=== PATIENT | female | born 1965 | race Caucasian/White ===

== ENCOUNTER 2019-05-03 08:43 | Emergency (ER) | payer OTHER, SELFPAY ==
[2019-05-03] VITALS (8 sets, daily range): BP systolic 115–147; BP diastolic 76–85; PULSE 60–81; RESP 18–20; TEMP 36.6; O2SAT 99
--- NOTE | ~2019-05-03 | XR_ITS ---
EXAMINATION: XR chest 2V EXAM DATE: 05/03/2019 09:24 INDICATION: Left anterior chest pain, shortness of breath and dizziness. Diaphoresis. TECHNIQUE: Frontal and lateral projections of the chest obtained and reviewed. Comparison is made to prior examination from 03/15/2018. FINDINGS: The lungs are clear. There are no pleural effusions. The cardiomediastinal silhouette is within normal limits. There is no pneumothorax suspected. The bones and soft tissues are unremarkab le. IMPRESSION: Normal chest x-ray exam. Reviewed, dictated and finalized at location A. IVAL STUDIES PROFESSOR IMPRESSION: Normal chest x-ray exam.
--- NOTE | 2019-05-03 08:49 | ECG_ITS ---
Measurements Intervals [place] Rate: 65 P: 58 MO: 141 QRS: 73 QRSD: 87 T: 74 QT: 405 QTc: 424 Interpretive Statements SINUS RHYTHM INCOMPLETE RIGHT BUNDLE BRANCH BLOCK DELAYED PRECORDIAL R/S TRANSITION BORDERLINE ECG Electronically Signed On 05-03-2019 12:07:44 CONTROLLED ATMOSPHERIC FURNACE BRAZER by Rick Ruff D.O.
--- NOTE | 2019-05-03 09:12 | ED.CHESTPAIN ---
HPI - Chest Pain General Chief Complaint: Chest Pain Stated Complaint: chest pain Source: patient Mode of arrival: ambulatory Limitations: no limitations History of Present Illness HPI narrative: This is a 53-year-old female presents with chest discomfort left lower chest area and epigastric with episode of diaphoresis that occurred last night, also woke up this morning with continued chest discomfort with no diaphoresis currently no shortness of breath no nausea vomiting she rates her pain a 5/10 currently on verapamil for migraines and gemfibrozil for hyperlipidemia. Currently a smoker of vapor cigarettes, also has a positive family history in her mother with heart disease and 1 stent. complaint: chest discomfort Onset (ago): day(s) Timing of current episode: episodic Prior episodes: Yes Onset: during rest Pain location: left chest and epigastric Pain radiation: none Severity: moderate Pain scale (0-10): 5 Quality: aching Relieving factors: nothing Exacerbating factors: nothing Associated symptoms: diaphoresis Risk Factors Coronary artery disease risk factors: smoking history and hyperlipidemia Related Data Allergies Allergy/AdvReac Type Severity Reaction Status Date / Time adhesive tape Allergy Unknown RASH, SKIN Verified 04/08/19 14:03 TEAR codeine Allergy Unknown N&V Verified 04/08/19 14:03 Latex, Natural Rubber Allergy Unknown RASH Verified 04/08/19 14:03 meperidine Allergy Unknown RESPIR. Verified 04/08/19 14:03 DISTRESS morphine Allergy Unknown HIVES, Verified 04/08/19 14:03 phenazopyridine Allergy Unknown N&V Verified 04/08/19 14:03 Sulfa (Sulfonamide Allergy Unknown N&V Verified 04/08/19 14:03 Antibiotics) acetaminophen AdvReac Unknown HALLUCCINAT Verified 04/08/19 14:03 IONS hydrocodone AdvReac Unknown HALLUCCINAT Verified 04/08/19 14:03 IONS simvastatin AdvReac Unknown MUSCLE Verified 04/08/19 14:03 SPASMS IN CHEST Review of Systems Review of Systems: All systems reviewed & are unremarkable except as noted in HPI and below PMFSH Past Medical History Medical History Asthma Genital warts Hyperlipemia Migraine Nicotine dependence Obesity (BMI 30-39.9) Surgical History Surgical History H/O carpal tunnel repair H/O laparoscopy H/O toe surgery H/O: hysterectomy History of appendectomy Family History Family History Mother Heart disease Atrial tachycardia Grandparent Acute myocardial infarction Social History Social History Smoking status: Current every day smoker Tobacco type: e-cigarettes Alcohol intake: never Substance use: current Substance use type: marijuana Additional living arrangements comments: Raising two grandsons Additional occupation/education comments: self employed Gender identity (if verbalized by the patient): Female Spiritual care concerns: No Exam Const: General: no acute distress and alert Orientation/consciousness: patient oriented x3 HENMT: Head: normal to inspection Eyes: Conjunctivae: conjunctivae normal Pupils: Equal, round and reactive pupils present EOM: EOMs intact bilaterally Neck: Neck: normal visual inspection Chest: Chest palpation & inspection: normal inspection of the chest Cardio: Rate: regular rate Rhythm: regular rhythm GI: Auscultation: normal bowel sounds : General: Yes no CVA tenderness Back/Spine/Pelvis: Back: no CVA tenderness Skin: General skin exam: normal color Rashes: no rashes Neuro: General: patient oriented x3, moves all extremities, no meningeal signs and no focal motor deficits Extrem: General: normal to inspection and no pedal edema Psych: Mental Status: mental status grossly normal Affect: normal affect Attitude: cooperative Thou
[2019-05-03 09:19] LABS: Basophils Absolute Auto 0.03 K/mm3 (0.00-0.10); Basophils Percent Auto 0.6 % (0.0-1.0); Eosinophils Absolute Auto 0.15 K/mm3 (0.02-0.50); Eosinophils Percent Auto 2.9 % (1.0-6.0); Hemoglobin 13.5 g/dL (12.0-15.0); Immature Granulocyte Absolute 0.01 K/mm3 (0.00-0.00); Immature Granulocyte Percent A 0.2 % (0.0-0.0); Lymphocytes Absolute Auto 1.47 K/mm3 (1.10-4.50); Lymphocytes Percent Auto 28.9 % (18.0-42.0); Mean Corpuscular HGB Conc 33.8 g/dL (32.0-36.0); Mean Corpuscular Hemoglobin 30.3 pg (27.0-31.0); Mean Corpuscular Volume 89.7 fL (78.0-102.0); Mean Platelet Volume 8.6 fl (9.2-11.8); Monocytes Absolute Auto 0.48 K/mm3 (0.10-0.90); Monocytes Percent Auto 9.4 % (2.0-11.0); Platelet Count Result 359 K/mm3 (150-420); Red Blood Count 4.46 M/mm3 (4.20-5.40); Red Cell Distribution Width 11.9 % (11.6-14.4); White Blood Count 5.1 K/mm3 (4.8-10.8)
[2019-05-03] MEDS: SODIUM CHLORIDE 0.9% IV 500 ML 999 ML IV CONT (09:36)
[2019-05-03] MEDS: KETOROLAC 30 MG/ML VIAL (*BKC) IV PUSH (09:43)
[2019-05-03 09:48] LABS: Alanine Aminotransferase 21 U/L (14-59); Albumin Level 3.8 g/dL (3.4-5.0); Alkaline Phosphatase 123 U/L (46-116); Aspartate Amino Transferase 17 U/L (15-37); Bilirubin,Total 0.4 mg/dL (0.00-1.00); Blood Urea Nitrogen 10 mg/dL (7-18); Calcium 9.1 mg/dL (8.5-10.1); Carbon Dioxide 27 mmol/L (21-32); Chloride 103 mmol/L (98-108); Estimated CRCL calculation 75 ml/min; Estimated Glomerular Filt Rate > 60; Glucose 96 mg/dL (70-99); Lipase 146 U/L (73-393); Osmolality Calculated 289 mOsm/kg (285-295); Sodium 140 mmol/L (136-145); Total Protein 7.5 g/dL (6.4-8.2)
[2019-05-03 09:52] LABS: Troponin I < 0.02 ng/mL (0.00-0.056)
== END 2019-05-03 10:08 | disposition home or self-care (01) ==
PROVIDERS: Emergency Provider Emergency Medicine; PCP Nurse Practitioner Family
DX: R07.89 Other chest pain (principal)
CPT/HCPCS: 36415; 71046; 80053; 83690; 84484; 85025; 93005; 96374; 99284; J1885; J7040

== ENCOUNTER 2019-05-12 12:42 | Outpatient (CLI) | payer OTHER, SELFPAY ==
--- NOTE | ~2019-05-12 | MM_ITS ---
EXAMINATION: MM screening lucian BI w jason HISTORY: Screening mammogram TECHNIQUE: Craniocaudal and mediolateral oblique 3-D tomosynthesis images were obtained and synthetic 2-D images were generated. CAD analysis was submitted and interpreted. COMPARISON: No prior mammogram is available for comparison at this institution. BREAST PARENCHYMAL COMPOSITION: There are scattered areas of fibroglandular density. FINDINGS: Biopsy marker on the right; history of prior benign right breast biopsy. Occasional benign calcifications. There is no evidence of suspicious mass, calcification, or architectural distortion t o suggest malignancy in either breast. There has been no suspicious interval change. IMPRESSION: 1. No mammographic evidence of malignancy. 2. Recommend routine screening mammography in one year. BI-RADS Category 2: Benign finding(s). Reviewed, dictated and finalized at location A. SSMENT RN
== END 2019-05-12 12:43 | disposition home or self-care (01) ==
LOC: CHSIMG 12:44
PROVIDERS: PCP Family Medicine; Visit Provider Nurse Practitioner Family
DX: Z12.31 Encounter for screening mammogram for malignant neoplasm of breast (principal)
CPT/HCPCS: 77063; 77067

== ENCOUNTER 2019-05-16 12:16 | Outpatient (CLI) | payer OTHER, SELFPAY ==
--- NOTE | 2019-05-16 13:30 | ECHO_ITS ---
Patient Info Name: Stefany Kuo Age: 53 years : 1965 Gender: Female Ht: 60 in Wt: 170 lbs BSA: 1.84 m2 HR: 64 bpm BP: 104 / 62 mmHg Technical Quality: Good Exam Date: 05/16/2019 12:53 PM Exam Location: [facility] Patient Status: Outpatient Admit Date: 05/16/2019 Staff Ordering Physician: Tsering Pettit NP Shed Hand: Todd Quinones RDCS, RT Attending Provider: Tsering Pettit NP Referring Physician: Wilver WILKINSON; Exam Type: CA echo doppler color flow Study Info Indications R07.89 - Other chest pain Complete two-dimensional, color flow and Doppler transthoracic echocardiogram is performed. Summary 1. Left ventricular chamber dimension is normal. 2. Left ventricular systolic function is normal, estimated at 60-65%. 3. The left ventricular diastolic function is normal. 4. E/e' 9 is minimally elevated. 5. Global longitudinal strain is normal at -18.3%. 6. Left atrial chamber dimension is mildly enlarged. Left Ventricle E/e' 9 is minimally elevated. Global longitudinal strain is normal at -18.3%. Left ventricular chamber dimension is normal. Left ventricular systolic function is normal, estimated at 60-65%. The left ventricular diastolic function is normal. Right Ventricle Right ventricular chamber dimension is normal. Right ventricular systolic function is normal. Left Atria Left atrial chamber dimension is mildly enlarged. Right Atria Right atrial chamber dimension is normal. Aortic Valve The aortic valve is trileaflet. There is no aortic valve stenosis. There is no aortic valve regurgitation. Pulmonic Valve There is no pulmonic regurgitation. Mitral Valve There is no mitral valve stenosis. There is no mitral valve regurgitation. Tricuspid Valve There is no tricuspid valve regurgitation. Pericardium/Pleural There is no pericardial effusion. Inferior Vena Cava Normal inferior vena cava with >50% collapse upon inspiration consistent with normal right atrial pressure, 5 mmHg. Aorta The aortic root size at the sinus of Valsalva is normal. Left Ventricular Outflow Tract Name Value Normal LVOT 2D LVOT Diameter 1.9 cm LVOT Doppler LVOT Peak Velocity 96 cm/s LVOT Peak Gradient 4 mmHg LVOT Mean Gradient 2 mmHg LVOT VTI 22 cm LVOT VTI/AV VTI Ratio 1.1 LVOT Stroke Volume 65 ml Pulmonic Valve Name Value Normal PV Doppler PV Peak Velocity 86 cm/s PV Peak Gradient 3 mmHg Mitral Valve Name Value Normal MV
== END 2019-05-16 12:17 | disposition home or self-care (01) ==
LOC: CHSIMG 12:17
PROVIDERS: PCP Nurse Practitioner Family; Visit Provider Nurse Practitioner Family
DX: R07.89 Other chest pain (principal); I45.10 Unspecified right bundle-branch block
CPT/HCPCS: 93306

== ENCOUNTER 2019-05-25 11:54 | Emergency (ER) | payer OTHER, SELFPAY ==
--- NOTE | ~2019-05-25 | XR_ITS ---
EXAMINATION: XR chest 2V DATE: 05/25/2019 12:59 INDICATION: Chest pain. TECHNIQUE: Frontal and lateral views of the chest were obtained. COMPARISON: Chest 2 views 05/03/2019 FINDINGS: The chest demonstrates clear lungs without pneumonia, pleural effusion, or pneumothorax. Th e heart size is normal. IMPRESSION: 1. No acute cardiopulmonary disease. Reviewed, dictated and finalized at location A. BLE OPERATOR
[2019-05-25 12:00] VITALS: BP 135/75; PULSE 73; PULSE 75; RESP 13; TEMP 36.8; O2SAT 100
--- NOTE | 2019-05-25 12:10 | ECG_ITS ---
Measurements Intervals [place] Rate: 70 P: 60 IN: 153 QRS: 84 QRSD: 91 T: 1 QT: 396 QTc: 429 Interpretive Statements SINUS RHYTHM RSR' IN V1 OR V2, CONSIDER RIGHT VENTRICULAR HYPERTROPHY OR RIGHT VCD MINIMAL Q WAVES- INF/LAT LEADS BORDERLINE ST-T WAVE ABNORMALITY- INF/LAT LEADS BORDERLINE ECG Electronically Signed On 05-25-2019 13:27:18 INSPECTOR AND SORTER by Rick Ruff D.O.
--- NOTE | 2019-05-25 12:10 | ED.CHESTPAIN ---
HPI - Chest Pain General Chief Complaint: Chest Pain Stated Complaint: chest pain History of Present Illness HPI narrative: 53 y.o. c/o sharp midsternal chest pain which started 3 days ago, waxed and waned through last night. She awoke with a different pain in the upper left chest which moved back and forth to and from the lateral left chest, waxing and waning. At its most severe point the pain is #7/10. These symptoms have been associated with frequent burping, a foul taste in her mouth, nausea, decreased appetite, intermittent diaphoresis and lightheadedness. She states she has had similar bouts of chest symptoms 4 separate times over the past year lasting less than a week; On several occasions she was dx. with chest wall muscle spasms. She can't identify any activities which increase (such as meals), bring on, decrease or relieve the symptoms. Since 05/03 she has been having dull discomfort in the left chest region. She was evaluated at [facility] where pantoprazole was started. She saw no affect on her symptoms. She denies worrying about the pain or its implications; she just wants to get it checked out. Related Data Home Medications Medication Instructions Recorded Confirmed cetirizine 10 mg capsule 10 mg PO DAILY 05/09/19 05/25/19 cholecalciferol (vitamin D3) 50 50 mcg PO DAILY 05/09/19 05/25/19 mcg (2,000 unit) capsule Allergies Allergy/AdvReac Type Severity Reaction Status Date / Time adhesive tape Allergy Unknown RASH, SKIN Verified 05/09/19 07:54 TEAR codeine Allergy Unknown N&V Verified 05/09/19 07:54 Latex, Natural Rubber Allergy Unknown RASH Verified 05/09/19 07:54 meperidine Allergy Unknown RESPIR. Verified 05/09/19 07:54 DISTRESS morphine Allergy Unknown HIVES, Verified 05/09/19 07:54 phenazopyridine Allergy Unknown N&V Verified 05/09/19 07:54 Sulfa (Sulfonamide Allergy Unknown N&V Verified 05/09/19 07:54 Antibiotics) acetaminophen AdvReac Unknown HALLUCCINAT Verified 05/09/19 07:54 IONS hydrocodone AdvReac Unknown HALLUCCINAT Verified 05/09/19 07:54 IONS simvastatin AdvReac Unknown MUSCLE Verified 05/09/19 07:54 SPASMS IN CHEST Review of Systems Constitutional: Constitutional: Denies chills and Denies fever(s) ENT: Denies dysphagia Cardiovascular: Cardiovascular: Denies radiating jaw, neck or arm pain Respiratory: Respiratory: Denies chest congestion and Denies wheezing Gastrointestinal: Gastrointestinal: Denies abdominal pain and Denies diarrhea Genitourinary: Genitourinary: Denies dysuria Musculoskeletal: Musculoskeletal: Denies back pain, Denies arthralgias and Denies joint swelling Integumentary/Breasts: Skin/Breast: Denies rash Neurologic: Denies dizziness Psychiatric: Comments: Had been stressed out ealier this month but denies high stress now; denies feeling anxious Hematologic/Lymphatic: Hematologic/Lymphatic: Denies easy bleeding Allergic/Immunologic: Allergic/Immunologic: Denies tongue swelling PMFSH Past Medical History Medical History (Updated 05/25/19 @ 14:12 by Camacho Wrener MD) Asthma Genital warts Hyperlipemia Incomplete right bundle branch block (RBBB) Migraine Nicotine dependence Obesity (BMI 30-39.9) Surgical History Surgical History H/O carpal tunnel repair H/O laparoscopy H/O toe surgery H/O: hysterectomy History of appendectomy Social History Social History (Updated 05/25/19 @ 13:36 by Camacho Werner MD) Social History: Long history of daily marijuana use. Smoking status: Current every day smoker Tobacco type: e-cigarettes Alcohol intake: never Substance use: current Substance use type: marijuana Additional living arrangements comments: Raising two grandsons Additional occupation/education comments: self employed Gender identity (if verbalized by the patient): Female Spiritual care concerns: No Exam Narrative:
[2019-05-25 12:47] LABS: Basophils Absolute Auto 0.04 K/mm3 (0.00-0.10); Basophils Percent Auto 0.5 % (0.0-1.0); Eosinophils Absolute Auto 0.13 K/mm3 (0.02-0.50); Eosinophils Percent Auto 1.8 % (1.0-6.0); Hematocrit 39.7 % (35.0-49.0); Hemoglobin 13.5 g/dL (12.0-15.0); Immature Granulocyte Absolute 0.01 K/mm3 (0.00-0.00); Immature Granulocyte Percent A 0.1 % (0.0-0.0); Lymphocytes Absolute Auto 1.49 K/mm3 (1.10-4.50); Lymphocytes Percent Auto 20.4 % (18.0-42.0); Mean Corpuscular Hemoglobin 30.6 pg (27.0-31.0); Mean Platelet Volume 8.8 fl (9.2-11.8); Monocytes Absolute Auto 0.54 K/mm3 (0.10-0.90); Monocytes Percent Auto 7.4 % (2.0-11.0); Neutrophils Absolute Auto 5.1 K/mm3 (1.7-7.2); Neutrophils Percent Auto 69.8 % (50.0-70.0); Platelet Count Result 351 K/mm3 (150-420); Red Blood Count 4.41 M/mm3 (4.20-5.40); Red Cell Distribution Width 11.9 % (11.6-14.4); White Blood Count 7.3 K/mm3 (4.8-10.8)
[2019-05-25 13:05] LABS: D Dimer 0.23 mg/L (0.19-0.50)
[2019-05-25 13:06] LABS: Anion Gap 16.7 mmol/L (7-16); Blood Urea Nitrogen 9 mg/dL (7-18); Calcium 9.1 mg/dL (8.5-10.1); Carbon Dioxide 26 mmol/L (21-32); Chloride 102 mmol/L (98-108); Estimated CRCL calculation 66 ml/min; Estimated Glomerular Filt Rate > 60; Glucose 119 mg/dL (70-99); Osmolality Calculated 291 mOsm/kg (285-295); Potassium 3.7 mmol/L (3.5-5.1); Sodium 141 mmol/L (136-145)
[2019-05-25 13:07] LABS: Troponin I < 0.02 ng/mL (0.00-0.056)
[2019-05-25 14:19] VITALS: RESP 13; O2SAT 100
== END 2019-05-25 14:13 | disposition home or self-care (01) ==
LOC: CHSED 11:57
PROVIDERS: Emergency Provider Family Medicine; PCP Nurse Practitioner Family
DX: R07.89 Other chest pain (principal); K21.9 Gastro-esophageal reflux disease without esophagitis
CPT/HCPCS: 36415; 71046; 80048; 83735; 84484; 85025; 85380; 93005; 99284; A9270